=== PATIENT | female | born 1950 | race Caucasian/White ===

== ENCOUNTER 2022-12-10 14:16 | Outpatient (REF) | payer MEDICARE, SELFPAY | END 2022-12-10 14:17 | disposition home or self-care (01) | LOC: LAB 14:16 | PROVIDERS: PCP Family Medicine | DX: S31.109A Unspecified open wound of abdominal wall, unspecified quadrant without penetration into peritoneal cavity, initial encounter (principal); L08.9 Local infection of the skin and subcutaneous tissue, unspecified | CPT/HCPCS: 87070; 87150; 87186 ==

== ENCOUNTER 2022-12-17 23:38 | Emergency (ER) | payer MEDICARE, BC, OTHER, SELFPAY ==
[2022-12-17 23:38] VITALS: BP 93/80; PULSE 94; RESP 22; TEMP 36.8; O2SAT 95; BMI 35.9
[2022-12-17 23:40] VITALS: BP 93/80; PULSE 98; RESP 32; O2SAT 82
[2022-12-18] VITALS (10 sets, daily range): BP systolic 95–107; BP diastolic 48–64; PULSE 87–107; RESP 18–30; O2SAT 84–98
--- NOTE | 2022-12-18 00:01 | XR_ITS ---
The [address] [address] Patient Name: ERNIE LAMBERT MRN: [id number] date: 1950 Sex: F Assigned Patient Location: ER Current Patient Location: ER Accession/Order Number: [id number] Exam Date: 12/18/2022 00:15 Report Date: 12/18/2022 00:53 At the request of: BJ MARKER Procedure: XR chest 1V CHEST X-RAY HISTORY: Shortness of breath COMPARISON: None. TECHNIQUE: 1 view chest is submitted for review. FINDINGS: The lungs are adequately expanded without evidence for acute infiltrate or effusion. The cardiac silhouette is enlarged. Pulmonary vascularity is unremarkable. Osseous structures are within expected limits for patients age. . IMPRESSION: Cardiomegaly. Electronically authenticated by: BECKY HO Date: 12/18/2022 00:53
--- NOTE | 2022-12-18 00:01 | ECG_ITS ---
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
--- NOTE | 2022-12-18 00:02 | ED_ITS ---
HPI - SOB/Dyspnea General Chief Complaint: Shortness of Breath/Dyspnea Stated Complaint: SOB Time Seen by Provider: 12/17/22 23:55 Source: patient Mode of arrival: ambulance Limitations: no limitations History of Present Illness HPI Narrative: This 72-year-old female with a history of chronic obstructive pulmonary disease who typically wears 4 L of supplemental oxygen is brought to the emergency department from the [facility] where she is currently in rehab after having 3 ventral hernias repaired at [facility]. The patient states that she became increasingly short of breath and had heaviness to her chest earlier this evening. He denies any ronni chest pain. She states she feels like she just cannot take a deep breath. Her oxygen was increased to 6 L. She states she does have some lower extremity swelling but recently had venous Dopplers of her lower extremities and does not have any blood clots in her legs. She states that she has not been smoking for the past 8 weeks. She hasn't been in rehab for the past 2-3 weeks. She states that she is doing well in her rehab. She denies any abdominal pain at this time. She states she does not have much of an appetite but has been eating small amounts and has been having bowel movements. She denies any fevers or chills. She has an occasional dry cough. She has not had any sputum production.. MD elicited complaint: shortness of breath and chest pain Pertinent past history: COPD Onset (ago): hour(s) (2) Related Data Home Medications Medication Instructions Recorded Confirmed albuterol sulfate 90 mcg/actuation 2 inh inhalation Q6H 12/18/22 12/18/22 breath activated powder inhaler aspirin 81 mg capsule 81 mg PO DAILY 12/18/22 12/18/22 budesonide-formoterol HFA 160 1 inh inhalation Q12H 12/18/22 12/18/22 mcg-4.5 mcg/actuation aerosol inhaler (Symbicort) citalopram 40 mg tablet 40 mg PO DAILY 12/18/22 12/18/22 diclofenac sodium 75 mg 50 mg PO DAILY 12/18/22 12/18/22 tablet,delayed release insulin lispro 100 unit/mL 1 sliding scale dose subcut 12/18/22 12/18/22 subcutaneous pen USEASDIRECTD levofloxacin 750 mg tablet 750 mg PO DAILY 12/18/22 12/18/22 nystatin 100,000 unit/gram topical 1 applic topical DAILY 12/18/22 12/18/22 ointment omeprazole 40 mg capsule,delayed 20 mg PO DAILY 12/18/22 12/18/22 release pramipexole 0.5 mg tablet 1 mg PO DAILY 12/18/22 12/18/22 simvastatin 10 mg tablet 10 mg PO DAILY 12/18/22 12/18/22 sitagliptin phosphate 50 1 tab PO BID 12/18/22 12/18/22 mg-metformin 500 mg tablet ([place]) tramadol 50 mg tablet 50 mg PO DAILY 12/18/22 12/18/22 Allergies Allergy/AdvReac Type Severity Reaction Status Date / Time cephalexin Allergy Unknown Verified 12/17/22 23:52 hydrocodone Allergy Unknown Verified 12/17/22 23:52 ibuprofen Allergy Unknown Verified 12/17/22 23:52 Penicillins Allergy Unknown Verified 12/17/22 23:52 sulfamethoxazole Allergy Unknown Verified 12/17/22 23:52 trimethoprim Allergy Unknown Verified 12/17/22 23:52 Review of Systems ROS Status of ROS 10 or more systems reviewed and unremarkable except as noted in history and below Exam Narrative Exam Narrative: Constitutional: Nontoxic moderately overweight elderly female resting can't when the stretcher, no respiratory distress, she is speaking in complete sentences without conversational dyspnea Vital signs are reviewed, the patient is a moderately low blood pressure 93/80, pulse is normal at 94,She is mildly tachypneic at 22, her oxygen saturation is 95 percent on 5 L nasal cannula HEENT, normocephalic atraumatic, mucous members are moist and pink, pupils are equal and reactive, she is nonicteric Neck, supple, no JVD Lungs: Diminished breath sounds with no wheezing rhonchi or rales appreciated, no accessory muscle use, Cardio: Regular rate and rhythm S1 and S2 no murmurs rubs or gallops appreciated Abdomen, abdominal binder is in place, I did not remove it, patient has no abdominal complaints Extremities: No clubbing cyanosis edema, calves are nontender, and do not appre ciate any lower extremity swelling, feet are warm and sensate Neuro: Awake alert oriented, no focal deficits noted, moving all extremities, speech is clear Skin: Clean, dry, no rash Constitutional Vital Signs - 24 hr 12/17/22 23:38 12/17/22 23:40 12/18/22 00:34 Temperature 98.3 F Pulse Rate 98 H 95 H Pulse Rate [Monitor] 94 H Respiratory Rate 22 32 H 23 Blood Pressure 93/80 H 97/48 L Blood Pressure [Left Arm] 93/80 H Pulse Oximetry 95 82 L 95 Oxygen Delivery Method Nasal Cannula Oxygen Delivery Flow Rate 5 12/18/22 00:48 Temperature Pulse Rate 87 Pulse Rate [Monitor] Respiratory Rate 20 Blood Pressure Blood Pressure [Left Arm] Pulse Oximetry 93 L Oxygen Delivery Method Oxygen Delivery Flow Rate 6 Course Vital Signs Vital signs: Vital Signs Temperature 98.3 F 12/17/22 23:38 Pulse Rate 94 H 12/17/22 23:38 Respiratory Rate 22 12/17/22 23:38 Blood Pressure 93/80 H 12/17/22 23:38 Pulse Oximetry 95 12/17/22 23:38 Oxygen Delivery Method Nasal Cannula 12/17/22 23:38 Oxygen Delivery Flow Rate 5 12/17/22 23:38 Temperature 98.3 F 12/17/22 23:38 Pulse Rate 87 12/18/22 00:48 Respiratory Rate 20 12/18/22 00:48 Blood Pressure 97/48 L 12/18/22 00:34 Pulse Oximetry 93 L 12/18/22 00:48 Oxygen Delivery Method Nasal Cannula 12/17/22 23:38 Oxygen Delivery Flow Rate 6 12/18/22 00:48 MDM - SOB/Dyspnea MDM Narrative Medical decision making narrative: This 72-year-old female with a history of chronic obstructive pulmonary disease who is home oxygen dependent is transferred from the [facility] where she is currently in rehab for evaluation of increasing shortness of breath and an episode where her chest felt tight earlier in the evening. She typically wears 4 L of supplemental oxygen and her oxygen had been increased to 6 L prior to arrival. On arrival she denied any chest pain. She is in rehab after having several abdominal hernias repaired at [facility]. She states she is doing well in rehab. She did state that she had some swelling of her lower extremities and had ultrasounds done that were negative for any blood clots. An EKG done upon arrival with sinus rhythm at [address] changes, normal axis, no acute ST segment elevation or signs of ischemia. An IV was placed and she was given a DuoNeb treatment and 2 g of magnesium. I withheld any steroids due to the fact that she is recovering from hernia surgery. Routine labs are reviewed. She has a normal troponin. She has an elevated BNP. Has normal white count. Her hemoglobin is mildly low at 7.8. I do not have any prior labs for comparison purposes. BUN is 22 and creatinine is 1.4 indicating mild renal insufficiency. Chest x-ray was read by radiology as cardiomegaly with no acute findings. In light of her lower extremity swelling, elevated BNP and increasing oxygen requirements I suspect her symptoms are related to mild fluid overload. This may be complicated by mild anemia. She was given 20 mg of IV Lasix. Her oxygen was turned down to 4-1/2 L which she has tolerated without difficulty. She requests to be returned to the rehab facility where she is currently residing for further evaluation and treatment. I signed her that she may require some Lasix in the future but this should be prescribed by the physician taking care of her at the extended care facility. She is otherwise hemodynamically stable for discharge. She did have one requested that was something for pain for her right shoulder. She has a lidocaine patch for her right shoulder and has had right shoulder pain ongoing for some period of time. She is allergic to norco but has been receiving Tramadol at the [facility] and was medicated with a dose of Tramadol in the ED. Differential Diagnosis Differential diagnosis: Likely other (mild anemia, mild fluid overload) Lab Data Attestation: I reviewed the patient's lab results. Labs: Lab Results 12/17/22 Range/Units 23:50 WBC 4.9 (4.0-11.0) 10^3/uL RBC 3.21 L (4.20-5.40) 10^6/uL Hgb 7.8 L (12.0-16.0) g/dL Hct 26.9 L (36.0-48.0) % MCV 83.8 (81.0-99.0) fL MCH 24.3 L (26.7-34.0) pg MCHC 29.0 L (29.9-35.2) g/dL RDW 18.2 H (11.0-15.0) % Plt Count 298 (150-450) 10^3/uL MPV 8.9 L (9.5-13.5) fL Neut % (Auto) 55.8 (43.0-75.0) % Lymph % (Auto) 25.5 (20.5-60.0) % [place] % (Auto) 10.4 (1.7-12.0) % Eos % (Auto) 7.1 H (0.9-7.0) % Baso % (Auto) 0.6 (0.2-2.0) % Neut # (Auto) 2.7 (1.4-6.5) 10^3/uL Lymph # (Auto) 1.3 (1.2-3.8) 10^3/uL [place] # (Auto) 0.5 (0.3-0.8) 10^3/uL Eos # (Auto) 0.4 (0.0-0.7) 10^3/uL Baso # (Auto) 0.0 (0.0-0.1) 10^3/uL Abs Immat Gran (auto) 0.03 (0.00-0.03) 10^3/uL Imm/Tot Granulo (auto) 0.6 H (0.0-0.5) % Sodium 140 (136-145) mmol/L Potassium 3.9 (3.5-5.1) mmol/L Chloride 104 (98-107) mmol/L Carbon Dioxide 26.9 (21.0-32.0) mmol/L Anion Gap 13.0 BUN 22.0 H (7.0-18.0) mg/dL Creatinine 1.42 H (0.55-1.02) mg/dL Est GFR ( Amer) 44 L (>=60) Est GFR (Non-Af Amer) 37 L (>=60) BUN/Creatinine Ratio 15.5 Glucose 99 (74-106) mg/dL Calcium 8.2 L (8.5-10.1) mg/dL Total Bilirubin 0.5 (0.2-1.0) mg/dL AST 26 (15-37) U/L ALT 28 (14-59) U/L Alkaline Phosphatase 43 L (46-116) U/L Troponin I High Sens 29.6 (4.0-51.3) pg/mL NT-Pro-B Natriuret Pep 1693.0 H* (<=900.0) pg/mL Total Protein 7.1 (6.4-8.2) g/dL Albumin 3.2 L (3.4-5.0) g/dL Globulin 3.9 g/dL Albumin/Globulin Ratio 0.8 ECG Data Attestation: I personally reviewed and interpreted this ECG as follows: (Sinus rhythm at 90 beats for minute, normal axis, nonspecific ST changes with very minimal ST depression in leads V4, V5, no acute ST segment elevation) Discharge Plan Discharge Chief Complaint: Shortness of Breath/Dyspnea Clinical Impression: Shortness of breath, Anemia, Fluid overload Patient Disposition: [facility] Time of Disposition Decision: 02:05 Condition: Good Instructions: COPD (Chronic Obstructive Pulmonary Disease) (ED), Anemia (ED), Edema (ED), Shortness of Breath (ED) Stand Alone Forms: Portal Instructions Referrals: ELSIE DALY [Physician] - 1 week
[2022-12-18 00:34] LABS: Basophils Percent Auto 0.6 % (0.2-2.0); Eosinophils Absolute Auto 0.4 10^3/uL (0.0-0.7); Eosinophils Percent Auto 7.1 % (0.9-7.0); Hematocrit 26.9 % (36.0-48.0); Hemoglobin 7.8 g/dL (12.0-16.0); Immature Granulocytes Abs Auto 0.03 10^3/uL (0.00-0.03); Immature Granulocytes Pct Auto 0.6 % (0.0-0.5); Lymphocytes Absolute Auto 1.3 10^3/uL (1.2-3.8); Lymphocytes Percent Auto 25.5 % (20.5-60.0); Mean Corpuscular Hemoglobin 24.3 pg (26.7-34.0); Mean Corpuscular Volume 83.8 fL (81.0-99.0); Mean Platelet Volume 8.9 fL (9.5-13.5); Monocytes Absolute Auto 0.5 10^3/uL (0.3-0.8); Monocytes Percent Auto 10.4 % (1.7-12.0); Neutrophils Absolute Auto 2.7 10^3/uL (1.4-6.5); Neutrophils Percent Auto 55.8 % (43.0-75.0); Platelet Count 298 10^3/uL (150-450); Red Blood Count 3.21 10^6/uL (4.20-5.40); Red Cell Distribution Width 18.2 % (11.0-15.0); White Blood Count 4.9 10^3/uL (4.0-11.0)
[2022-12-18] MEDS: MAGNESIUM SULFATE IN WATER 50 ML IV (00:35)
[2022-12-18 00:44] LABS: Alanine Aminotransferase 28 U/L (14-59); Albumin Globulin Ratio 0.8; Albumin Level 3.2 g/dL (3.4-5.0); Alkaline Phosphatase 43 U/L (46-116); Aspartate Amino Transferase 26 U/L (15-37); BUN Creatinine Ratio 15.5; Bilirubin Total 0.5 mg/dL (0.2-1.0); Calcium 8.2 mg/dL (8.5-10.1); Carbon Dioxide 26.9 mmol/L (21.0-32.0); Chloride 104 mmol/L (98-107); Estimated GFR (African America 44 (>=60); Estimated GFR (Non-African Ame 37 (>=60); Globulin 3.9 g/dL; Glucose 99 mg/dL (74-106); Potassium 3.9 mmol/L (3.5-5.1); Sodium 140 mmol/L (136-145); Total Protein 7.1 g/dL (6.4-8.2); Troponin I High Sensitivity 29.6 pg/mL (4.0-51.3)
[2022-12-18] MEDS: IPRATROPIUM/ALBUTEROL SULFATE 3 ML AMPUL.NEB IH (00:47)
[2022-12-18] MEDS: TRAMADOL HCL 50 MG TABLET PO (02:27)
[2022-12-18] MEDS: ONDANSETRON 4 MG RAPDIS TABLET SL (02:27)
[2022-12-18] MEDS: FUROSEMIDE 20 MG/2 ML VIAL IVP (02:27)
== END 2022-12-18 03:00 ==
PROVIDERS: Emergency Provider Emergency Medicine; PCP Family Medicine
DX: E87.70 Fluid overload, unspecified (principal); D64.9 Anemia, unspecified; R06.02 Shortness of breath; J44.9 Chronic obstructive pulmonary disease, unspecified; Z99.81 Dependence on supplemental oxygen; N28.9 Disorder of kidney and ureter, unspecified; R79.89 Other specified abnormal findings of blood chemistry; Z79.82 Long term (current) use of aspirin; Z79.899 Other long term (current) drug therapy; Z79.4 Long term (current) use of insulin; Z87.891 Personal history of nicotine dependence
CPT/HCPCS: 36415; 71045; 80053; 83880; 84484; 85025; 93005; 94640; 96374; 96375; 99285